=== PATIENT | male | born 1985 | race Caucasian/White ===

== ENCOUNTER 2020-01-06 19:44 | Emergency (ER) | payer SELFPAY ==
[~2020-01-06] VITALS: Ht 188 cm; Wt 87.1 kg
[2020-01-06 19:49] VITALS: BP 145/81
--- NOTE | 2020-01-06 19:52 | NUR ---
To ED bed 11
--- NOTE | 2020-01-06 19:55 | NUR ---
BIB SELF FOR MEDICAL EVALUATION. PER PT HE FELT DIZZY AT WORK X 2 HOURS AGO, BUT DENIES FEELING ANY N/V/D AT THIS TIME. NO C/O PAIN OR DISCOMFORT. PER PT HE REQUIRES A MEDICAL EVALUATION AND CLEARANCE TO RETURN TO WORK. HE IS A&O X 4, CALM & PLEASANT IN NO ACUTE DISTRESS NOTED, BREATHING EVEN AND UNLABORED. SKIN WAS WARM TO TOUCH. BED LOCKED AND PLACED IN LOWEST POSITION. MEDHX: DENIES ALLERGIES: NKA
--- NOTE | 2020-01-06 20:06 | NUR ---
MARCELLA ESPINAL AT BEDSIDE EVALUATING PT.
--- NOTE | 2020-01-06 20:07 | NUR ---
Salvador sierra in EDM - 01/06/20 at 2012 by CAITIE LUIS MIGUEL NARANJO AT BEDSIDE EVALUATING PATIENT
[2020-01-06 20:20] VITALS: BP 124/82
--- NOTE | 2020-01-06 20:20 | NUR ---
Patient discharged with v/s stable. Written and verbal after care instructions given and explained. Patient verbalized understanding. Ambulatory with steady gait. All questions addressed prior to discharge. Advised to follow up with PMD.
== END 2020-01-06 20:20 | disposition home or self-care (01) ==
LOC: MED 19:44
DX: R42 Dizziness and giddiness (principal); R51.9 Headache, unspecified; Z02.89 Encounter for other administrative examinations
CPT/HCPCS: 99281; 99282

== ENCOUNTER 2020-02-18 18:26 | Emergency (ER) | payer SELFPAY ==
[~2020-02-18] VITALS: Ht 188 cm; Wt 78.0 kg
[2020-02-18 18:35] VITALS: BP 141/91
[2020-02-18 19:25] VITALS: BP 141/91
--- NOTE | 2020-02-18 19:28 | NUR ---
SEEN AND EXAMINED BY TEA WITH ORDERS AND CARRIED OUT.
[2020-02-18] MEDS ORDERED: ALUMINUM HYD/MAG/SIMETHICONE 30 ML UDC PO ONE (19:50)
[2020-02-18] MEDS ORDERED: ONDANSETRON 4 MG ODT PO ONE (19:50)
[2020-02-18 20:33] LABS: BASOPHILS # (AUTO) 0.1 K/uL (0.00-0.22); BASOPHILS % (AUTO) 1.4 % (0.0-2.0); EOSINOPHILS # (AUTO) 0.2 K/uL (0-0.4); EOSINOPHILS % (AUTO) 2.7 % (0.0-4.0); HEMOGLOBIN 14.3 g/dL (12.0-18.0); LYMPHOCYTES # (AUTO) 1.5 K/uL (2.0-11.5); LYMPHOCYTES % (AUTO) 24.8 % (20.5-51.1); MEAN CORPUSCULAR HEMOGLOBIN 30 pg (27-31); MEAN CORPUSCULAR HGB CONC 34 g/dL (33-37); MEAN CORPUSCULAR VOLUME 88.9 fL (80-94); MONOCYTES # (AUTO) 0.4 K/uL (0.8-1.0); MONOCYTES % (AUTO) 6.5 % (1.7-9.3); NEUTROPHILS # (AUTO) 3.8 K/uL (1.8-7.7); NEUTROPHILS % (AUTO) 64.6 % (42.2-75.2); PLATELET COUNT (AUTO) 298 K/uL (140-450); RED BLOOD CELL COUNT(AUTO) 4.72 MIL/uL (4.20-6.10); RED CELL DISTRIBUTION WIDTH 13.6 % (11.6-13.7); WHITE BLOOD COUNT (AUTO) 5.9 K/uL (4.8-10.8)
[2020-02-18 20:46] LABS: ALBUMIN 4.2 g/dL (3.4-5.0); ANION GAP 11.2 (8-16); CREATININE 0.8 mg/dL (0.6-1.3); POTASSIUM 4.2 mmol/L (3.5-5.1); TOTAL BILIRUBIN 0.5 mg/dL (0.0-1.0)
--- NOTE | 2020-02-18 21:40 | NUR ---
Patient discharged with v/s stable. Written and verbal after care instructions given and explained. Patient alert, oriented and verbalized understanding of instructions. Ambulatory with steady gait. All questions addressed prior to discharge. ID band removed. Patient advised to follow up with PMD. Rx of ZOFRAN AND PEPCID given. Patient educated on indication of medication including possible reaction and side effects. Opportunity to ask questions provided and answered.
== END 2020-02-18 21:40 | disposition home or self-care (01) ==
LOC: MED 18:26
DX: K21.9 Gastro-esophageal reflux disease without esophagitis (principal)
CPT/HCPCS: 36415; 76705; 80053; 83690; 85025; 99284; Q0162